=== PATIENT | male | born 1995 | race Caucasian/White ===

== ENCOUNTER 2016-10-26 18:14 | Emergency (ER) | payer OTHER ==
[~2016-10-26] VITALS: Ht 188 cm; Wt 125.0 kg
[~2016-10-26 18:14] MED LIST: INDOCIN50 MG PO; KLOR-CON M2020 MEQ PO; MOBIC7.5 MG PO
[2016-10-26] MEDS ORDERED: SKELAXIN800 MG PO (20:16)
[2016-10-26] MEDS ORDERED: NAPROSYN500 MG PO (20:16)
[2016-10-26] MEDS ORDERED: NORCO 5/3251 TABLET PO (20:16)
[2016-10-26 20:28] VITALS: BP 135/90
== END 2016-10-26 20:28 | disposition home or self-care (01) ==
LOC: EME 18:14
DX: S29.012A Strain of muscle and tendon of back wall of thorax, initial encounter (principal); X50.0XXA Overexertion from strenuous movement or load, initial encounter; Y93.89 Activity, other specified
CPT/HCPCS: 99281; 99284; J1885

== ENCOUNTER 2016-10-30 09:37 | Emergency (ER) | payer OTHER ==
[~2016-10-30] VITALS: Ht 188 cm; Wt 130.4 kg
[~2016-10-30 09:37] MED LIST changes: +NAPROSYN500 MG PO; +NORCO 5/3251 TABLET PO; +SKELAXIN800 MG PO
[2016-10-30] MEDS ORDERED: ZOFRAN ODT4 MG PO (11:32)
[2016-10-30] MEDS ORDERED: NAPROXEN500 MG PO (11:32)
[2016-10-30 11:54] VITALS: BP 157/84
== END 2016-10-30 11:54 | disposition home or self-care (01) ==
LOC: EME 09:37
DX: A08.4 Viral intestinal infection, unspecified (principal); S39.012D Strain of muscle, fascia and tendon of lower back, subsequent encounter; I10 Essential (primary) hypertension; F17.200 Nicotine dependence, unspecified, uncomplicated
CPT/HCPCS: 99281; 99284; J1885

== ENCOUNTER 2017-01-25 03:18 | Emergency (ER) | payer OTHER ==
[~2017-01-25] VITALS: Ht 188 cm; Wt 126.9 kg
[~2017-01-25 03:18] MED LIST changes: +NAPROXEN500 MG PO; +ZOFRAN ODT4 MG PO
[2017-01-25] MEDS ORDERED: NAPROXEN500 MG PO (04:26)
[2017-01-25 04:51] VITALS: BP 112/70
== END 2017-01-25 04:51 | disposition home or self-care (01) ==
LOC: EME 03:18
DX: S63.91XA Sprain of unspecified part of right wrist and hand, initial encounter (principal); W22.09XA Striking against other stationary object, initial encounter; F17.200 Nicotine dependence, unspecified, uncomplicated
CPT/HCPCS: 73130; 99281; 99283

== ENCOUNTER 2017-06-02 21:01 | Emergency (ER) | payer OTHER ==
[~2017-06-02] VITALS: Ht 188 cm; Wt 137.4 kg
[2017-06-02 21:34] LABS: HEMATOCRIT 42.7 % (38.0-50.0); MCH 31.2 PG (29.0-34.0); MCHC 35.1 G/DL (30.0-36.0); MCV 88.8 FL (86-99); MEAN PLAT.VOLUME 10.3 uM^3 (9.0-12.4); PLATELET COUNT 195 K/uL (156-360); RBC DIS.WIDTH-CV 12.2 % (11.8-14.6); RBC DIS.WIDTH-SD 39.7 % (39-53); RED BLOOD COUNT 4.81 M/uL (4.00-5.50); WHITE BLOOD COUNT 9.5 K/uL (4.1-10.2)
[2017-06-02 21:45] LABS: CHLORIDE 107 mEq/L (99-109); POTASSIUM 3.8 mEq/L (3.7-5.4); SODIUM 140 mEq/L (136-147)
[2017-06-02 21:47] LABS: GLUCOSE 104 mg/dL (70-99)
[2017-06-02 21:49] LABS: ANION GAP 16 MEQ/L (2-14); TOTAL BILIRUBIN 0.2 mg/dL (0.0-1.0)
[2017-06-02 21:51] LABS: ALKALINE PHOSPHATASE 76 IU/L (3-129); GFR ESTIMATE (CALCULATED) > 59 mL/min/
[2017-06-02 21:52] LABS: UREA NITROGEN (BUN) 16 mg/dL (9-23)
[2017-06-02 21:54] LABS: LIPASE 34 U/L (1.0-51.0)
[2017-06-02 23:36] LABS: ADD MIUA? NO; BILIRUBIN NEGATIVE; BLOOD NEGATIVE; COLOR YELLOW ((YELLOW)); GLUCOSE (STRIP) NEGATIVE; KETONES NEGATIVE; LEUKOCYTES NEGATIVE; NITRITE NEGATIVE; PROTEIN (STRIP) NEGATIVE; UCUL ADDED? NO; UROBILINOGEN 0.2 MG/DL (0.2-1.0)
[2017-06-02] MEDS ORDERED: ZITHROMAX Z-PA250 MG PO (23:55)
[2017-06-02] MEDS ORDERED: PROVENTIL HFA6.7 GM IH (23:55)
[2017-06-02] MEDS ORDERED: ZOFRAN4 MG PO (23:55)
[2017-06-03 00:11] VITALS: BP 149/75
== END 2017-06-03 00:12 | disposition home or self-care (01) ==
LOC: EME 21:01
DX: J20.9 Acute bronchitis, unspecified (principal); R11.10 Vomiting, unspecified; F17.200 Nicotine dependence, unspecified, uncomplicated
CPT/HCPCS: 71020; 80053; 81003; 83690; 85027; 99281; 99284

== ENCOUNTER 2017-06-26 19:46 | Emergency (ER) | payer OTHER ==
[~2017-06-26] VITALS: Ht 188 cm; Wt 138.2 kg
[~2017-06-26 19:46] MED LIST changes: +PROVENTIL HFA6.7 GM IH; +ZITHROMAX Z-PA250 MG PO; +ZOFRAN4 MG PO
[2017-06-26 20:17] LABS: HEMATOCRIT 40.9 % (38.0-50.0); MCH 30.7 PG (29.0-34.0); MCHC 34.7 G/DL (30.0-36.0); MCV 88.5 FL (86-99); MEAN PLAT.VOLUME 10.8 uM^3 (9.0-12.4); PLATELET COUNT 185 K/uL (156-360); RBC DIS.WIDTH-CV 12.5 % (11.8-14.6); RBC DIS.WIDTH-SD 40.5 % (39-53); RED BLOOD COUNT 4.62 M/uL (4.00-5.50); WHITE BLOOD COUNT 10.1 K/uL (4.1-10.2)
[2017-06-26 20:25] LABS: CHLORIDE 106 mEq/L (99-109); POTASSIUM 4.6 mEq/L (3.7-5.4); SODIUM 139 mEq/L (136-147)
[2017-06-26 20:27] LABS: GLUCOSE 94 mg/dL (70-99)
[2017-06-26 20:29] LABS: ANION GAP 12 MEQ/L (2-14); TOTAL BILIRUBIN 0.3 mg/dL (0.0-1.0)
[2017-06-26 20:31] LABS: ALKALINE PHOSPHATASE 64 IU/L (3-129); GFR ESTIMATE (CALCULATED) > 59 mL/min/
[2017-06-26 20:32] LABS: UREA NITROGEN (BUN) 14 mg/dL (9-23)
[2017-06-26 20:34] LABS: LIPASE 28 U/L (1.0-51.0)
[2017-06-26 21:56] LABS: ADD MIUA? NO; BILIRUBIN NEGATIVE; BLOOD NEGATIVE; COLOR YELLOW ((YELLOW)); GLUCOSE (STRIP) NEGATIVE; KETONES NEGATIVE; LEUKOCYTES NEGATIVE; NITRITE NEGATIVE; PROTEIN (STRIP) 30; SPECIFIC GRAVITY 1.028 (1.000-1.030); UCUL ADDED? NO; UROBILINOGEN 0.2 MG/DL (0.2-1.0)
[2017-06-27] MEDS ORDERED: PERCOCET 5/31 TABLET PO (01:40)
[2017-06-27 02:02] VITALS: BP 136/72
== END 2017-06-27 02:04 | disposition home or self-care (01) ==
LOC: RME 19:46 → EME 19:46 → RME 06-27 02:04
DX: R10.9 Unspecified abdominal pain (principal); K08.89 Other specified disorders of teeth and supporting structures; I10 Essential (primary) hypertension; F17.200 Nicotine dependence, unspecified, uncomplicated
CPT/HCPCS: 74176; 80053; 81003; 83690; 85027; 99281; 99284

== ENCOUNTER 2017-07-07 10:19 | Emergency (ER) | payer OTHER ==
[~2017-07-07] VITALS: Ht 188 cm; Wt 135.1 kg
[~2017-07-07 10:19] MED LIST changes: +PERCOCET 5/31 TABLET PO
[2017-07-07] MEDS ORDERED: TESSALON200 MG PO (11:45)
[2017-07-07] MEDS ORDERED: PREDNISONE20 MG PO (11:45)
[2017-07-07 11:56] VITALS: BP 149/82
== END 2017-07-07 11:58 | disposition home or self-care (01) ==
LOC: EME 10:19
DX: J20.9 Acute bronchitis, unspecified (principal); I10 Essential (primary) hypertension; F17.210 Nicotine dependence, cigarettes, uncomplicated
CPT/HCPCS: 71020; 94640; 99281; 99284; J7512

== ENCOUNTER 2017-10-14 16:37 | Emergency (ER) | payer SELFPAY ==
[~2017-10-14] VITALS: Ht 188 cm; Wt 138.9 kg
[~2017-10-14 16:37] MED LIST changes: +PREDNISONE20 MG PO; +TESSALON200 MG PO
[2017-10-14] MEDS ORDERED: TAMIFLU75 MG PO (21:00)
[2017-10-14 21:25] VITALS: BP 153/70
== END 2017-10-14 21:27 | disposition home or self-care (01) ==
LOC: EME 16:37
DX: J10.1 Influenza due to other identified influenza virus with other respiratory manifestations (principal); B34.9 Viral infection, unspecified; F17.200 Nicotine dependence, unspecified, uncomplicated; I10 Essential (primary) hypertension; Z88.1 Allergy status to other antibiotic agents
CPT/HCPCS: 87502; 99281; 99285; J1885; J7030